=== PATIENT | male | born 1970 | race Caucasian/White ===

== ENCOUNTER → 2019-07-09 | Outpatient (CLI) | payer OTHER ==
--- NOTE | 2019-07-10 08:25 | US ---
EXAMINATION TYPE: US scrotum with doppler. Grayscale and color Doppler Duplex imaging performed of t he scrotum. DATE OF EXAM: 07/09/2019 COMPARISON: NONE CLINICAL HISTORY: N50.89 Other specified disorders of the male genit. Pt states palpable lump right p osterior scrotum EXAM MEASUREMENTS: TESTICLES: Right Testicle: 5.0 x 2.6 x 4.0 cm Left Testicle: 4.5 x 2.6 x 3.9 cm EPIDIDYMIS HEAD: Right Epididymis: 1.4 cm Left Epididymis: 1.3 cm Doppler performed to assess for testicular vascularity; good bilateral color flow and waveforms are s een. There is no evidence of testicular torsion. Presence of hydroceles: No Presence of varicoceles: Possible inferior to left testicle Area of pt's palpable lateral/inferior to right testicle was scanned while pt holding right testicl e/ very difficult to scan due to mobile skin/testicle/ in area of pt's palpable shows patent blood ve ssels and heterogenous right epididymis, very difficult to isolate this area IMPRESSION: 1. No suspicious intratesticular mass. 2. Small left varicocele. 3. At the. The palpable abnormality per patient guidance small normal-appearing blood vessels are see n as well as a heterogenous right epididymis with appearance of multiple complex spermatoceles. No cu rrent evidence of epididymitis..
== END | disposition home or self-care (01) ==
LOC: RADUSMAIN 15:51
PROVIDERS: ATTEND Family Medicine
DX: I86.1 Scrotal varices (principal); N43.42 Spermatocele of epididymis, multiple
CPT/HCPCS: 76870; 93975

== ENCOUNTER → 2019-11-20 | Outpatient (CLI) | payer OTHER ==
--- NOTE | 2019-11-20 14:40 | XR ---
EXAMINATION TYPE: XR abdomen 1V DATE OF EXAM: 11/20/2019 COMPARISON: NONE HISTORY: Pain TECHNIQUE: Single supine KUB image of the abdomen is obtained FINDINGS: Small bowel demonstrates no evidence for dilatation or air fluid levels. Gas and fecal material is seen in non-distended colon. No convincing evidence for pneumoperitoneum. No unusual calcifications. The lung bases are clear. The osseous structures are intact. IMPRESSION: 1. Overall nonobstructive bowel gas pattern.
== END | disposition home or self-care (01) ==
LOC: RADXRYALE 14:04
PROVIDERS: ATTEND Physician Assistant
DX: K59.00 Constipation, unspecified (principal)
CPT/HCPCS: 74018

== ENCOUNTER → 2019-11-28 | Outpatient (CLI) | payer OTHER ==
--- NOTE | 2019-11-28 12:36 | CT ---
EXAMINATION TYPE: CT abdomen pelvis w con DATE OF EXAM: 11/28/2019 COMPARISON: 05/05/2013 HISTORY: 49-year-old male Lower abdominal pain with constipation TECHNIQUE: Contiguous axial scanning of the abdomen and pelvis following administration of 100 ml Iso catia 300 IV contrast. Delayed images through the kidneys and coronal/sagittal reconstructions perform ed. CT DLP: 3442.6 mGycm Automated exposure control for dose reduction was used. FINDINGS: Heart normal size without pericardial effusion. Some strandy atelectasis at the left base. No pleural effusion. Liver enlarged at 20.8 cm with diffuse low-attenuation. No focal lesion seen. No biliary ductal dilat ation. Portal venous system is patent. Gallbladder, adrenal glands, left kidney, and pancreas appear within normal limits. Spleen enlarged at 15.2 cm measured on coronal series. Clips within the right renal fossa status post right nephrectomy. The nephrectomy bed appears clear. Tiny fatty umbilical hernia. No mesenteric or retroperitoneal lymphadenopathy. No dilated small bowel , free fluid, or free air. Normal appendix. Oral contrast progressed to the mid transverse colon. Mild stool burden. No pericolo jeramy inflammatory change. Bladder distended. Prostate gland measures 3.7 cm wide. Patulous right internal canal. No abnormal fl uid collection in the pelvis or pelvic lymphadenopathy. Bones antegrade intramedullary nail within the visualized proximal right femur. Mild degenerative isai nge of the hips. No osseous process. IMPRESSION: 1. 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 2. MILD SPLENOMEGALY (15.2 CM). 3. STATUS POST RIGHT NEPHRECTOMY. THE RIGHT NEPHRECTOMY BED REMAINS CLEAR. 4. MILD STOOL BURDEN. TINY FATTY UMBILICAL HERNIA. PATULOUS RIGHT INGUINAL CANAL VERSUS SMALL FATTY I NGUINAL HERNIA.
== END | disposition home or self-care (01) ==
LOC: RADCTMAIN 08:26
PROVIDERS: ATTEND Family Medicine
DX: K76.0 Fatty (change of) liver, not elsewhere classified (principal); K42.9 Umbilical hernia without obstruction or gangrene; R16.2 Hepatomegaly with splenomegaly, not elsewhere classified; K59.09 Other constipation; Z90.5 Acquired absence of kidney; Z85.528 Personal history of other malignant neoplasm of kidney
CPT/HCPCS: 74177; Q9967 ×2

== ENCOUNTER → 2020-11-11 | Outpatient (CLI) | payer OTHER ==
--- NOTE | 2020-11-11 14:46 | XR ---
EXAMINATION TYPE: XR lumbosacral spine min 4V DATE OF EXAM: 11/11/2020 CLINICAL HISTORY: pain COMPARISON: NONE TECHNIQUE: Frontal, lateral, and oblique images of the lumbar spine are obtained. FINDINGS: There are 5 lumbar type vertebral bodies identified. The lumbar spine shows satisfactory alignment without evidence of acute fracture or dislocation. Vertebral body heights are within normal limits. Moderate to severe multilevel degenerative disc space narrowing greatest at L4-5. Ventral an d dorsal spondylosis. Facet joint arthropathy identified. The overlying soft tissue appears unremar kable. IMPRESSION: No acute fracture or dislocation is seen in the lumbar spine.ICD 10 NO FRACTURE, INITIAL EVALUATION
== END | disposition home or self-care (01) ==
LOC: RADXRYALE 13:19
PROVIDERS: ATTEND Family Medicine
DX: M51.36 Other intervertebral disc degeneration, lumbar region (principal)
CPT/HCPCS: 72110